=== PATIENT | male | born 2000 | race Caucasian/White ===

== ENCOUNTER 2024-05-24 16:27 | Emergency (ER) | payer OTHER, SELFPAY ==
[2024-05-24 16:45] VITALS: BP 124/74; PULSE 77; RESP 16; TEMP 37.1; O2SAT 99; BMI 22.9
--- NOTE | 2024-05-24 18:31 | ED_ITS ---
HPI - Weakness General Time Seen by Provider: 18:31 Date Seen: 05/24/24 Chief complaint: Weakness Stated complaint: Fatigued for past week Time Seen by Provider: 05/24/24 18:12 Source: patient and RN notes reviewed Mode of arrival: ambulatory Limitations: no limitations History of Present Illness HPI Narrative: This 23-year-old male is coming in with sudden onset of fatigue/weakness for about a week. States yesterday he felt weak to the point he had difficult time walking. He has a mild generalized headache, sometimes will get this. He had diarrhea this afternoon once but this was after coffee and was not abnormal, no other diarrhea besides that. He has had no abdominal pain, no nausea vomiting. He has had no cough or respiratory symptoms. He has felt generalized achiness, muscle achiness. He has had some sore throat. He has had some phlegm and congestion that he notes more chronically. He started smoking at age 16, just quit 2 months ago. He does worry that this could have some correlation with it. He feels like he has just and a workup out in his legs but has not done that. Occasionally he may have some voice hoarseness but absolutely no difficulty swallowing, no dysphagia. He has had no travel, no known ill contacts. He is sexually active with a female partner, monogamous stable relationship. He has no concerns for any STIs, never been diagnosed with these before. He notes in 2022 his dad brought him into the ER for similar symptoms, was feeling worse though an actually had vasovagal syncope from what it sounds on 2 episodes. He believes they never really found anything, thought was maybe associated with viral illness. Related Data Home Medications ?Medication ?Instructions ?Recorded ?Confirmed No Known Home Medications 05/24/24 05/24/24 Allergies Allergy/AdvReac Type Severity Reaction Status Date / Time No Known Drug Allergies Allergy Verified 05/24/24 16:50 Review of Systems Status of ROS: Reports: 6 or more systems reviewed and unremarkable except as noted in History and below PFSH PFS Social History Smoking Status: Former smoker How often do you have a drink containing alcohol: 2-3 times a week How many standard drinks containing alcohol do you have on a typical day: 1 or 2 How often do you have six or more drinks on one occasion: Never AUDIT-C Alcohol total score: 3 Non-prescribed substance use: marijuana (any form) Non-prescribed substance use details: THC, 1x week Exam Const: Vital Signs, click to edit/add: Vital Signs - 24 hr 05/24/24 16:45 05/24/24 19:30 05/24/24 20:57 Temperature 98.8 F Pulse Rate 103 H 87 Pulse Rate [Pulse Oximeter] 77 Respiratory Rate 16 16 16 Blood Pressure 113/76 118/71 Blood Pressure [Ri ght Upper Arm] 124/74 Pulse Oximetry 99 98 98 Oxygen Delivery Me thod Room Air Room Air Room Air This 23-year-old male is alert, interactive, no apparent distress. Ambulatory into the ED of his own accord. Pupils equal round reactive, sclera clear, symmetrical facial function. Oropharynx with normal posterior pharynx, tonsils, soft palate and uvula normal, oral mucosa, dentition and tongue all normal. No cervical adenopathy, neck is supple, no thyromegaly masses or nodules. Lungs are clear, good air entry, no wheezing or crackles. CV regular rate and rhythm, no murmur, normal S1-S2, no S3-S4. Abdomen is soft, nontender, nondistended count organomegaly. Skin visualized without rash. Documenting provider has reviewed patient's vital signs: yes Course Course ED Course: Patient and I discussed doing some screening laboratory tests including mono spot. He does agree to do the triple viral swab. Will do a screening CK. He is up ambulatory at this time, able to walk into the ED, functionally that tells us a lot of information about his musculature. Will see if his labs show us anything, do not have any thoughts of any imaging at this time as I do not feel that there is anything specific to evaluate. Reevaluation(s) Time of Reevaluation #1: 20:36 Reevaluation #1: Have reviewed with patient that we are still awaiting thyroid testing and the viral triple swab to come back. His cell counts are all normal chemistries all normal with the exception of his AST being 55. He has had some recent alcohol use. Did review with him that this is minimally elevated, this is not enough elevation to be a causative reason for his symptoms. A virus could conceivably even mildly elevate this. At this point, would recommend recheck of his AST within the next month, sooner if concerns or worsening. I am not overly concerned with this value. He is hungry, did find him some food to snack on while we await this test results. Did offer to call him with the test results but he is concerned about the pending COVID and potentially exposing other people. Time of Reevaluation #2: 21:29 Reevaluation #2: Patient updated on normal thyroid and negative triple viral screen. Vital Signs Vital signs: Initial Vital Signs Temperature 98.8 F 05/24/24 16:45 Temperature Source Temporal Artery Scan 05/24/24 16:45 Pulse Rate 77 05/24/24 16:45 Respiratory Rate 16 05/24/24 16:45 Blood Pressure 124/74 05/24/24 16:45 Blood Pressure Mean 90 05/24/24 16:45 Blood Pressure Position Sitting 05/24/24 16:45 Pulse Oximetry 99 05/24/24 16:45 Oxygen Delivery Method Room Air 05/24/24 16:45 Vital Signs Temperature 98.8 F 05/24/24 16:45 Pulse Rate 77 05/24/24 16:45 Respiratory Rate 16 05/24/24 16:45 Blood Pressure 124/74 05/24/24 16:45 Pulse Oximetry 99 05/24/24 16:45 Oxygen Delivery Method Room Air 05/24/24 16:45 Temperature 98.8 F 05/24/24 16:45 Pulse Rate 87 05/24/24 20:57 Respiratory Rate 16 05/24/24 20:57 Blood Pressure 118/71 05/24/24 20:57 Pulse Oximetry 98 05/24/24 20:57 Oxygen Delivery Method Room Air 05/24/24 20:57 MDM - Weakness Lab Data Attestation: I reviewed the patient's lab results. Labs: Lab Results 05/24/24 05/24/24 Range/Units 18:56 19:03 WBC 5.07 (4.50-11.00) K/uL RBC 5.52 (4.30-5.90) m/uL Hgb 16.0 (13.5-17.5) gm/dL Hct 46.8 (37.0-53.0) % MCV 85 (80-100) fL MCH 29 (26-34) pg MCHC 34 (32-36) gm/dL RDW Coeff of Jeremy 12.7 (11.5-15.5) % Plt Count 173 (140-440) K/uL Neut % (Auto) 58.0 (42.0-72.0) % Lymph % (Auto) 26.6 (20-44) % [place] % (Auto) 12.2 H (0.0-11.0) % Eos % (Auto) 2.0 (0.0-7.0) % Baso % (Auto) 0.4 (0.0-3.0) % Neut # (Auto) 2.94 (1.7-7.0) K/uL Lymph # (Auto) 1.35 (0.90-2.90) K/uL [place] # (Auto) 0.60 (0.00-0.90) K/UL Eos # (Auto) 0.10 (0.00-0.50) K/uL Baso # (Auto) 0.02 (0.00-0.30) K/uL Abs Immat Gran (auto) 0.04 (0.00-0.30) K/uL Imm/Tot Granulo (auto) 0.8 % Sodium 138 (135-149) mmol/L Potassium 4.1 (3.6-5.1) mmol/L Chloride 101 (96-114) mmol/L Carbon Dioxide 27 (20-32) mmol/L Anion Gap 10 (7-15) mEq/L BUN 13 (5-24) mg/dL Creatinine 0.9 (0.5-1.5) mg/dL Estimated Creat Clear 152.44 Estimated GFR 125 ml/min Glucose 94 (60-115) mg/dL Lactate 0.9 (0.5-1.9) mmol/L Calcium 9.2 (8.4-10.6) mg/dL Total Bilirubin 0.8 (0.1-1.5) mg/dL AST 55 H (12-35) U/L ALT 41 (4-50) U/L Alkaline Phosphatase 64 (40-150) U/L Total Creatine Kinase 105 (54-186) U/L C-Reactive Protein 0.8 (0.5-1.0) mg/dL Total Protein 8.1 (6.0-8.3) g/dL Albumin 5.1 H (3.3-5.0) g/dL TSH 1.750 (0.270-4.200) uIU/mL SARS-CoV-2 (PCR) Negative SARS-CoV-2 (Negative) Monoscreen Negative (Negative) Influenza Type A (PCR) Negative PCR FLU A (Negative) Influenza Type B (PCR) Negative PCR FLU B (Negative) RSV (PCR) Negative PCR RSV (Negative) Lab Acknowledgement Test Added Discharge Plan Discharge Clinical Impression: Fatigue Patient Disposition: Home, Self-Care Condition: Stable Instructions: Fatigue (ED) Additional Instructions: [place] screen, COVID, influenza and RSV were negative. White count was normal. Only abnormality in the chemistries was the AST was slightly up at 55. All other liver tests were normal. Thyroid function was normal. The AST being minimally elevated at 55 is not overtly concerning to me, do not feel that this is enough to cause significant symptoms. I would recommend rechecking the liver function within 1 months time or sooner if worsening symptoms, changing symptoms. Would refrain from alcohol use. Recommend recheck in clinic with the primary care provider within the next week if you can possibly do this. Prescriptions: No Action No Known Home Medications Follow Up/Referrals: Provider,Not a Local [Primary Care Provider] - Stand Alone Forms: [place] Info Instructions
[2024-05-24 19:24] LABS: Lactate* 0.9 mmol/L (0.5-1.9)
[2024-05-24 19:30] VITALS: BP 113/76; PULSE 103; RESP 16; O2SAT 98
[2024-05-24 19:35] LABS: Basophils Absolute Auto 0.02 K/uL (0.00-0.30); Basophils Percent Auto 0.4 % (0.0-3.0); Hematocrit 46.8 % (37.0-53.0); Immature Granulocytes Abs Auto 0.04 K/uL (0.00-0.30); Immature Granulocytes Pct Auto 0.8 %; Lymphocytes Absolute Auto 1.35 K/uL (0.90-2.90); Lymphocytes Percent Auto 26.6 % (20-44); Mean Corpuscular HGB Conc 34 gm/dL (32-36); Mean Corpuscular Hemoglobin 29 pg (26-34); Mean Corpuscular Volume 85 fL (80-100); Monocytes Percent Auto 12.2 % (0.0-11.0); Neutrophils Absolute Auto 2.94 K/uL (1.7-7.0); Platelet Count* 173 K/uL (140-440); RDW Coefficient of Variation % 12.7 % (11.5-15.5); Red Blood Count 5.52 m/uL (4.30-5.90); White Blood Count* 5.07 K/uL (4.50-11.00)
[2024-05-24 19:44] LABS: Mono Screen* Negative (Negative)
[2024-05-24 19:45] LABS: Slide Review Reflex No
[2024-05-24 19:49] LABS: Albumin* 5.1 g/dL (3.3-5.0); Chloride* 101 mmol/L (96-114); Potassium* 4.1 mmol/L (3.6-5.1); Sodium* 138 mmol/L (135-149)
[2024-05-24 19:51] LABS: Alanine Aminotransferase* 41 U/L (4-50); Aspartate Amino Transferase* 55 U/L (12-35); Blood Urea Nitrogen* 13 mg/dL (5-24); Creatinine* 0.9 mg/dL (0.5-1.5); Est. Creatinine Clearance* 152.44; Estimated Glomerular Filt Rate 125 ml/min
[2024-05-24 19:52] LABS: Alkaline Phosphatase* 64 U/L (40-150); Anion Gap 10 mEq/L (7-15); Bilirubin Total* 0.8 mg/dL (0.1-1.5); Calcium* 9.2 mg/dL (8.4-10.6); Carbon Dioxide* 27 mmol/L (20-32); Creatine Kinase* 105 U/L (54-186); Glucose* 94 mg/dL (60-115); Total Protein* 8.1 g/dL (6.0-8.3)
[2024-05-24 19:55] LABS: C Reactive Protein* 0.8 mg/dL (0.5-1.0)
[2024-05-24 20:57] VITALS: BP 118/71; PULSE 87; RESP 16; O2SAT 98
[2024-05-24 21:25] LABS: PCR FLU A Negative PCR FLU A (Negative); PCR FLU B Negative PCR FLU B (Negative); PCR RSV Negative PCR RSV (Negative); SARS PCR* Negative SARS-CoV-2 (Negative)
== END 2024-05-24 21:45 | disposition home or self-care (01) ==
PROVIDERS: Emergency Provider Family Medicine
DX: R53.83 Other fatigue (principal)
CPT/HCPCS: 36415; 80053; 82550; 83605; 84443; 85025; 86140; 86308; 87631; 99283; 99284